=== PATIENT | female | born 1970 | race Asian ===

== ENCOUNTER 2020-10-10 22:52 | Outpatient (REF) | payer OTHER, SELFPAY ==
[2020-10-10 16:05] LABS: HCT 38.4 % (36.0-46.0); HGB 11.8 g/dL (11.2-15.7); MCH 25.2 pg (27.0-33.0); MCHC 30.7 % (32.0-36.0); MCV 81.9 fL (80-95); Platelet Count 477 10^3/uL (130-400); RBC 4.69 10^6/uL (3.93-5.22); RDW 15.4 % (11.7-14.6); RDW-SD 46.3 fL; WBC 8.86 10^3/uL (4.4-10.8)
[2020-10-10 16:39] LABS: Anion Gap 9.1 mmol/L (3-11); BUN 11 mg/dL (7-18); CO2 25.9 mmol/L (21.0-32.0); CREATININE 0.8 mg/dL (0.55-1.02); Calcium 9.4 mg/dL (8.5-10.1); Calculated LDL 146 mg/dL (<100); Chloride 104 mmol/L (98-107); Cholesterol 220 mg/dL (<200); Glucose 101 mg/dL (74-106); HDL Cholesterol 47 mg/dL (40-60); Potassium 4.7 mmol/L (3.5-5.1); Sodium 139 mmol/L (136-145); Triglyceride 139 mg/dL (<150)
== END 2020-10-10 22:53 | disposition home or self-care (01) ==
LOC: NCHCN 22:52
PROVIDERS: PCP Nurse Practitioner Family; Visit Provider Nurse Practitioner Family
DX: I10 Essential (primary) hypertension (principal); R53.83 Other fatigue; Z13.220 Encounter for screening for lipoid disorders
CPT/HCPCS: 80048; 80061; 85027; 84443

== ENCOUNTER 2021-07-31 15:53 | Outpatient (REF) | payer OTHER, SELFPAY ==
--- NOTE | 2021-07-31 15:15 | PAPFT_PTH ---
PATIENT: Tonie Espinoza LOC: [facility]#:[id number] AGE/SX: 51/F ROOM: RE07/31/[address]: Yolande Shoemaker : 1970 BED: DIS: 07/31/2021 SPEC #: [id number] RECD: 08/01/21 12:59 STATUS: YAIR REQ #: [id number] [place]: 07/31/21 15:[address]: Yolande Shoemaker DEPT: [facility] Cytology RECD BY: Magnolia Gardner ENTERED: 08/01/21 13:00 SP TYPE: PAPFT OTHR DR: Jena Cook Tissues: 1 - CX/ENDOCX FOR PAP SMEARS Procedures: PAP THIN PREP/[facility] Screening HPV DNA PROBE Comments: [id number]
== END 2021-07-31 15:54 | disposition home or self-care (01) ==
LOC: NCHCN 15:53
PROVIDERS: PCP Nurse Practitioner Family; Visit Provider Nurse Practitioner Family
DX: Z12.4 Encounter for screening for malignant neoplasm of cervix (principal); Z11.51 Encounter for screening for human papillomavirus (HPV)
CPT/HCPCS: 88142; 87624